=== PATIENT | female | born 1955 | race Caucasian/White ===

== ENCOUNTER 2016-11-16 20:46 | Emergency (ER) | payer BC ==
[~2016-11-16 20:46] MED LIST: AMBIEN10 MG PO; ANEXSIA 5-3251 EACH PO; IBUPROFEN800 MG PO; KEFLEX500 M2 PO; NORCO 5/325 TAB1 TAB PO; SIMVASTATIN40 MG PO; VITAMIN D50000 UNI1 PO
[2016-11-16] MEDS ORDERED: LOMAIRA8 MG (22:33)
[2016-11-17] MEDS ORDERED: NORCO 5/3251 TAB PO (00:03)
== END 2016-11-17 00:30 ==
LOC: EDMED 20:46
PROC: 0SSQXZZ Reposition Left Toe Phalangeal Joint, External Approach (ICD-10-PCS; principal; 2016-11-17)
DX: S92.512A Displaced fracture of proximal phalanx of left lesser toe(s), initial encounter for closed fracture (principal); W22.8XXA Striking against or struck by other objects, initial encounter; Y93.89 Activity, other specified